=== PATIENT | female | born 2000 | race Caucasian/White ===

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

== ENCOUNTER 2021-03-03 12:40 | Emergency (ER) | payer OTHER ==
[~2021-03-03] VITALS: Ht 162.6 cm; Wt 90.7 kg
[~2021-03-03 12:40] MED LIST changes: +PROAIR HFA8.5 GM INH
[2021-03-03 12:43] VITALS: BP 155/78
== END 2021-03-03 13:05 | disposition home or self-care (01) ==
LOC: ER 12:40
DX: S01.511A Laceration without foreign body of lip, initial encounter (principal); J45.909 Unspecified asthma, uncomplicated; Z88.0 Allergy status to penicillin; W01.198A Fall on same level from slipping, tripping and stumbling with subsequent striking against other object, initial encounter; Y93.89 Activity, other specified; Y92.89 Other specified places as the place of occurrence of the external cause; Y99.8 Other external cause status

== ENCOUNTER 2021-03-26 10:17 | Emergency (ER) | payer OTHER ==
[~2021-03-26] VITALS: Ht 162.6 cm; Wt 95.3 kg
[2021-03-26 10:24] VITALS: BP 136/78
[2021-03-26] MEDS ORDERED: AZITHROMYCIN 2250 MG PO (11:54)
== END 2021-03-26 12:07 | disposition home or self-care (01) ==
LOC: ER 10:17
DX: J02.0 Streptococcal pharyngitis (principal); J45.909 Unspecified asthma, uncomplicated; Z88.0 Allergy status to penicillin